=== PATIENT | female | born 1975 | race Hispanic/Latino ===

== ENCOUNTER 2017-12-26 22:07 | Observation (INO) | payer OTHER ==
[~2017-12-26] VITALS: Ht 167.6 cm; Wt 80.5 kg
[2017-12-26] MEDS ORDERED: ONDANSETRON HCL INJ 2 MG/ML VIAL IV STA (23:16)
[2017-12-26] MEDS ORDERED: SODIUM CHLORIDE 0.9% 1000ML 1,000 ML IV STA (23:16)
[2017-12-26] MEDS ORDERED: FAMOTIDINE 20 MG/2 ML VIAL IV STA (23:19)
[2017-12-26 23:31] LABS: BASOPHILS # (AUTO) 0.1 (0.0-0.1); BASOPHILS % 0.7 % (0.0-1.0); EOSINOPHILS # (AUTO) 0.3 (0.0-0.4); EOSINOPHILS % 4.6 % (0.0-6.0); HEMATOCRIT 33.4 % (34.2-44.1); HEMOGLOBIN 12.5 g/dL (12.0-16.0); LYMPHOCYTES # (AUTO) 2.6 (1.0-3.2); LYMPHOCYTES % 36.8 % (18.0-39.1); MEAN CORPUSCULAR HEMOGLOBIN 31.7 pg (28-32); MEAN CORPUSCULAR HGB CONC 37.4 g/dL (31-35); MEAN CORPUSCULAR VOLUME 84.8 fL (81-99); MONOCYTES # (AUTO) 0.4 (0.2-0.8); MONOCYTES % 6.2 % (4.4-11.3); NEUTROPHILS # (AUTO) 3.6 (2.1-6.9); NEUTROPHILS % 51.6 % (38.7-80.0); PLATELET COUNT 243 x10e3/uL (140-360); RED BLOOD COUNT 3.94 x10e6/uL (3.6-5.1); RED CELL DISTRIBUTION WIDTH 14.2 % (11.7-14.4)
[2017-12-26 23:34] LABS: COLOR,URINE YELLOW (YELLOW)
[2017-12-26 23:35] LABS: BILIRUBIN,URINE NEGATIVE (NEGATIVE); CLARITY,URINE HAZY (CLEAR); KETONES,URINE NEGATIVE (NEGATIVE); LEUKOCYTE ESTERASE ,URINE NEGATIVE (NEGATIVE); NITRITE,URINE NEGATIVE (NEGATIVE); PREGNANCY TEST, URINE NEGATIVE (NEGATIVE); PROTEIN,URINE DIPSTICK NEGATIVE (NEGATIVE); URINE UROBILINOGEN 0.2 mg/dL (0.2 - 1)
[2017-12-26 23:46] LABS: ALANINE AMINOTRANSFERASE 11 IU/L (0-55); ALBUMIN 4.1 g/dL (3.5-5.0); ALBUMIN/GLOBULIN RATIO 1.2 (0.8-2.0); ALKALINE PHOSPHATASE 86 IU/L (40-150); ANION GAP 14.9 mmol/L (8-16); BLOOD UREA NITROGEN 17 mg/dL (7-26); BUN/CREATININE RATIO 24 (6-25); CALCIUM 9.6 mg/dL (8.4-10.2); CARBON DIOXIDE 22 mmol/L (22-29); CHLORIDE 104 mmol/L (98-107); CREATININE, SERUM 0.71 mg/dL (0.57-1.11); EST GLOMERULAR FILTRATION RATE > 60 ML/MIN (60-); GLUCOSE 96 mg/dL (74-118); LIPASE 47 U/L (8-78); POTASSIUM 3.9 mmol/L (3.5-5.1); SODIUM 137 mmol/L (136-145)
[2017-12-27] VITALS (7 sets, daily range): BP systolic 92–110; BP diastolic 20–61
[2017-12-27 00:13] LABS: BACTERIA,URINE MANY /HPF; EPITHELIAL CELLS,URINE FEW /LPF; RBC,URINE 0-5 /HPF (0-5)
[2017-12-27] MEDS ORDERED: SODIUM CHLORIDE 0.9% 50ML 50 ML ONE (00:26)
[2017-12-27] MEDS ORDERED: IOPAMIDOL 370 MG/ML 200 ML INFUS..BTL INJ ONE (00:26)
--- NOTE | 2017-12-27 01:36 | Diagnostic Imaging Report ---
EXAM: CT ABDOMEN/PELVIS W DATE: 12/26/2017 11:16 PM INDICATION: \S\upper abd pain. worse with food \[id number] \S\[id number] \S.br\COMPARISON: None TECHNIQUE: The abdomen and pelvis were scanned using a multidetector helical scanner. Coronal and sagittal reformations were obtained. CT low dose techniques were utilized, as applicable. IV Contrast: 100 ml Isovue 300/370 FINDINGS: LOWER THORAX: No consolidations LIVER/BILIARY: No masses. No ductal dilatation. GALLBLADDER: There is a presumed large stone at the gallbladder neck measuring 2.3 cm. Mildly distended gallbladder with pericholecystic fluid. SPLEEN: Unremarkable PANCREAS: Unremarkable ADRENALS: No nodules KIDNEYS: No suspicious renal masses. No hydronephrosis. GI TRACT: No wall thickening or evidence of obstruction. Normal appendix. VESSELS: Unremarkable PERITONEUM/RETROPERITONEUM: No free air or fluid LYMPH NODES: No lymphadenopathy REPRODUCTIVE ORGANS/BLADDER: Multi fibroid uterus. Unremarkable bladder. SOFT TISSUES: Unremarkable BONES: No suspicious bone lesions. IMPRESSION: Findings most compatible with acute cholecystitis related to a large stone at the gallbladder neck. Signed by: Dr Jaida Gonzalez MD on 12/27/2017 1:33 AM
[2017-12-27] MEDS ORDERED: LEVOFLOXACIN 500MG/D5W 100ML 100 ML IV ONE (02:00)
[2017-12-27] MEDS ORDERED: MORPHINE SULFATE 2 MG/ML SYR IV PRN (02:00)
[2017-12-27] MEDS ORDERED: METRONIDAZOLE 500MG/NS 100ML 100 ML IV SCH (02:00)
[2017-12-27] MEDS: D5.45%NS/KCL 20MEQ 1,000 ML IV SCH ×3 (05:04→17:35)
[2017-12-27] MEDS: METRONIDAZOLE 500MG/NS 100ML IV SCH ×3 (08:54→17:35)
[2017-12-27] MEDS ORDERED: BUPIVACAINE 0.25%/EPI 30ML SDV INJ ONE (14:15)
--- NOTE | 2017-12-27 16:15 | Operative Report ---
DATE OF PROCEDURE: December 27, 2017 PREOPERATIVE DIAGNOSIS: Acute cholecystitis. POSTOPERATIVE DIAGNOSIS: Acute cholecystitis. PROCEDURE PERFORMED: Laparoscopic cholecystectomy. NAIL POLISH BRUSH MACHINE FEEDER: MICHAEL Jacobson ESTIMATED BLOOD LOSS: Minimal. DRAINS: None. COMPLICATIONS: None. INDICATIONS AND FINDINGS: The patient is a pleasant 42-year-old female admitted from the emergency room complaining of abdominal pain for several days. CT scan of the abdomen revealed a large stone in the neck of the gallbladder and cholecystitis. Liver chemistries were normal. INTRAOPERATIVE FINDINGS: Acute cholecystitis secondary to a large single stone. DESCRIPTION OF PROCEDURE: With the patient lying on the operative table in the supine position, after administration of general anesthesia, he was prepped and draped for laparoscopic cholecystectomy. The procedure was begun by establishing a pneumoperitoneum in the umbilical site after a stab wound was made in that location and the saline drop test was performed. A pneumoperitoneum was insufflated to 15 mm of pressure and then the 10-11 trocar placed in that location. The patient was rotated to the left and with head up, and then we placed a 10-mm subxiphoid port and finally 2 lateral working ports, 5 mm each, in the right mid-clavicular line and right anterior axillary line. The gallbladder was acutely inflamed. It was then retracted cephalad using grasping forceps through the two 5-mm trocars. Then the dissection on it was begun, exposing the cystic duct high in the neck of the gallbladder. After we did that, we identified the cystic artery, and then we began the dissection. In addition, we clipped the cystic duct distally 3 times and once proximally and then transected the cystic artery between titanium clips, also. Then we took the gallbladder down from the liver bed using electrocautery dissection. The gallbladder was then detached, placed in an Endo bag and removed. The wound was then closed in layers using #0 Vicryl for the umbilical fascia, 3-0 Vicryl for the subcutaneous tissue as well as the subxiphoid port. The skin of all the ports was closed using yusuf. Marcaine 0.25% with epinephrine was given as a local block at the end of the case. The patient tolerated the procedure well and was taken to the recovery room in stable condition. Job#: [id number]
[2017-12-27] MEDS ORDERED: FENTANYL CITRATE/PF 100MCG/2 ML INJ ONE ×2 (16:18→17:58)
[2017-12-27] MEDS ORDERED: MEPERIDINE HCL INJ 50 MG/ML INJ ONE (16:38)
[2017-12-27] MEDS ORDERED: METOCLOPRAMIDE HCL 10 MG/2ML VIAL ONE (17:08)
[2017-12-27] MEDS ORDERED: NEOSTIGMINE 5 MG/5ML SYR ONE (17:44)
[2017-12-27] MEDS ORDERED: SEVOFLURANE INHAL SOLN 250 ML PEN BTL ONE (17:44)
[2017-12-27] MEDS ORDERED: EPHEDRINE SULFATE INJ 50 MG/10 ML SYR ONE (17:44)
[2017-12-27] MEDS ORDERED: ROCURONIUM BROMIDE 10 MG/ML 5ML VIAL ONE (17:44)
[2017-12-27] MEDS ORDERED: LIDOCAINE HCL 2% LOCAL INJ 5 ML SDV VIAL INJ ONE (17:44)
[2017-12-27] MEDS ORDERED: PROPOFOL IV EMULSION 10 MG/ML 20 ML VIAL ONE (17:44)
[2017-12-27] MEDS ORDERED: SUCCINYLCHOLINE 200 MG/10 ML SYR ONE (17:44)
[2017-12-27] MEDS ORDERED: ACETAMINOPHEN 1000 MG/100 ML IV ONE (17:44)
[2017-12-27] MEDS ORDERED: DEXAMETHASONE SOD PHOS INJ 4 MG/ML VIAL ONE (17:44)
[2017-12-27] MEDS ORDERED: GLYCOPYRROLATE INJ 1MG/ 5 ML SYR ONE (17:44)
[2017-12-27] MEDS ORDERED: ONDANSETRON HCL INJ 2 MG/ML VIAL ONE (17:44)
[2017-12-27] MEDS: HYDROCODONE/APAP 7.5MG-325MG 1 EA TAB PO PRN ×2 (17:56→22:33)
[2017-12-27] MEDS ORDERED: MIDAZOLAM HCL 2 MG/2 ML VIAL ONE (17:58)
[2017-12-27] MEDS: ONDANSETRON HCL INJ 2 MG/ML VIAL IV PRN (22:57)
[2017-12-28] VITALS (7 sets, daily range): BP systolic 97–156; BP diastolic 56–77
[2017-12-28] MEDS: ONDANSETRON HCL INJ 2 MG/ML VIAL IV PRN ×2 (02:45→07:52)
[2017-12-28] MEDS: MORPHINE SULFATE INJ 4 MG/ML INJ IV PRN ×2 (02:45→07:52)
[2017-12-28] MEDS: LEVOFLOXACIN 500MG/D5W 100ML IV SCH (02:50)
[2017-12-28 05:16] LABS: BASOPHILS % 0.2 % (0.0-1.0); HEMATOCRIT 32.2 % (34.2-44.1); HEMOGLOBIN 10.9 g/dL (12.0-16.0); LYMPHOCYTES # (AUTO) 0.9 (1.0-3.2); LYMPHOCYTES % 7.1 % (18.0-39.1); MEAN CORPUSCULAR HEMOGLOBIN 26.8 pg (28-32); MEAN CORPUSCULAR HGB CONC 33.9 g/dL (31-35); MEAN CORPUSCULAR VOLUME 79.1 fL (81-99); MONOCYTES # (AUTO) 0.7 (0.2-0.8); MONOCYTES % 5.4 % (4.4-11.3); NEUTROPHILS # (AUTO) 11.2 (2.1-6.9); NEUTROPHILS % 86.8 % (38.7-80.0); PLATELET COUNT 206 x10e3/uL (140-360); RED BLOOD COUNT 4.07 x10e6/uL (3.6-5.1); RED CELL DISTRIBUTION WIDTH 12.3 % (11.7-14.4)
[2017-12-28] MEDS: D5.45%NS/KCL 20MEQ 1,000 ML IV SCH ×3 (05:27→16:52)
[2017-12-28 05:38] LABS: ANION GAP 13.2 mmol/L (8-16); BLOOD UREA NITROGEN 11 mg/dL (7-26); BUN/CREATININE RATIO 15 (6-25); CALCIUM 8.5 mg/dL (8.4-10.2); CARBON DIOXIDE 23 mmol/L (22-29); CHLORIDE 103 mmol/L (98-107); CREATININE, SERUM 0.72 mg/dL (0.57-1.11); EST GLOMERULAR FILTRATION RATE > 60 ML/MIN (60-); GLUCOSE 141 mg/dL (74-118); POTASSIUM 4.2 mmol/L (3.5-5.1); SODIUM 135 mmol/L (136-145)
[2017-12-29] VITALS: BP 108/60
[2017-12-29] MEDS: LEVOFLOXACIN 500MG/D5W 100ML IV SCH (01:48)
[2017-12-29] MEDS: D5.45%NS/KCL 20MEQ 1,000 ML IV SCH (01:49)
[2017-12-29 04:00] VITALS: BP 108/60
[2017-12-29 09:56] VITALS: BP 103/56
[2017-12-29 10:56] VITALS: BP 103/56
[2017-12-29] MEDS ORDERED: TYLENOL WITH C1 EACH PO (12:22)
== END 2017-12-29 12:55 | disposition home or self-care (01) ==
LOC: ER 22:07 → INTOOBSV 12-27 02:07 → ERHOLD 12-27 02:07 → MED/SURG 12-27 03:09
PROVIDERS: ADMIT Surgery; ATTEND Surgery
DX: K80.12 Calculus of gallbladder with acute and chronic cholecystitis without obstruction (principal); G43.909 Migraine, unspecified, not intractable, without status migrainosus
CPT/HCPCS: 36415 ×2; 47562; 74177; 80048; 80053; 81001; 81025; 83690; 85025 ×2; 88304; 99284; C1766; G0378 ×3; J1100; J1956 ×3; J2001; J2175; J2250; J2270; J2405 ×2; J2765; J3490; J7030; Q9967